=== PATIENT | female | born 1995 | race Caucasian/White ===

== ENCOUNTER 2016-12-29 10:03 | Inpatient (IN) | payer BC ==
--- NOTE | ~2016-12-29 | CN ---
Consultation Report [facility] [address] [place]. [address] NAME: HILARIA GRAHAM : [birth year] STATUS : ADM IN [facility]#: [id number] AGE: 21 ADM/REG DATE : 12/29/16 MR#: [id number] REPORT SERV DATE: 12/29/16 DICTATED BY: MAURICE MELARA DATE: 12/29/16 REPORT STATUS : Draft TRANSCRIBED BY: MODKatie DATE: 12/29/16 INFECTIOUS DISEASE CONSULT DATE OF CONSULTATION: REASON FOR CONSULT: Right ankle infection. HISTORY OF PRESENT ILLNESS: A 21 years old white lady with no significant past medical history, who suffered a right fibula fracture and the right medial malleolus tendon rupture, and had surgical repair in September. She had an ORIF laterally and this tendon suture medially. She states that she had stitches for a while, but when the stitches were removed, the wound did not coapt and did not heal. They tried local treatments with Iodosorb and then later, in the last few weeks, she received two rounds of Keflex. She has had some yellowish drainage and some bloody drainage from the upper portion of the incision, but no fever or chills. No shortness of breath. No nausea, no diarrhea, no urinary symptoms. She was also found to have a right leg DVT, so she is on anticoagulation with Eliquis. Finally, she was admitted for deeper debridement of this incision. PAST MEDICAL HISTORY: As I mentioned above, plus she has an unknown dermatologic condition that affected her arms, but she has no open wounds. FAMILY HISTORY: Mother had DVT. ALLERGIES: SULFA CAUSED A REACTION AT A YOUNG AGE. SOCIAL HISTORY: She is . She states she is not at risk of being . There is no need to do a test. She does not smoke. 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 MEDICATIONS ON ADMISSION: Only the Eliquis. PHYSICAL EXAMINATION: GENERAL: She is alert, awake, not in distress. HEENT: No oral erythema. LUNGS: Clear to auscultation. HEART: Regular rhythm. ABDOMEN: Obese, soft. EXTREMITIES: Left foot without lesions. Right ankle with good range of motion. Lateral ankle has a fairly long incision going up along the lateral malleolus. It is covered with Iodosorb. The upper portion has some dehiscence. There may be of purulent material there, but I could not see how deep did it go. There is no surrounding cellulitis. No significant edema. Skin over the arms has some reddish patches, which apparently is chronic. LAB WORK: Reviewed. There is no leukocytosis and no renal insufficiency. There is mild Consultation Report [address] [place]. [address] NAME: HILARIA GRAHAM : [birth year] STATUS : ADM IN [facility]#: [id number] AGE: 21 ADM/REG DATE : 12/29/16 MR#: [id number] REPORT SERV DATE: 12/29/16 DICTATED BY: MAURICE MELARA DATE: 12/29/16 REPORT STATUS : Draft TRANSCRIBED BY: JOSIE DATE: 12/29/16 elevation of the inflammatory parameters. ASSESSMENT AND PLAN: 1. Right lateral ankle incision dehiscence post ORIF right ankle fracture in September. She received Keflex until last night. She is going to the operating room. Please send operative cultures. We will start antibiotics postop with vancomycin. We will see what the surgical findings are, whether this is a deep process involving the bone or the hardware. 2. Recent right leg deep vein thrombosis, on anticoagulation. Agree with holding antibiotics preop. I discussed with the patient and she had the opportunity to ask questions. BRAN/JOSIE Maurice Melara M.D. / [id number] CC: David Dawkins MD
--- NOTE | ~2016-12-29 | OP ---
Record Of Operation [facility] [address] [place]. [address] NAME: DAXA LUDWIG : [birth year] STATUS : ADM IN PAT#: [id number] AGE: 21 ADM/REG DATE : 12/29/16 MR#: [id number] REPORT SERV DATE: 12/30/16 DICTATED BY: MONE SÁNCHEZ DATE: 12/30/16 REPORT STATUS : Draft TRANSCRIBED BY: MODL DATE: 12/30/16 DATE OF PROCEDURE: 12/29/2016 PREOPERATIVE DIAGNOSES: 1. Right bimalleolar equivalent ankle fracture. 2. Right wound dehiscence. POSTOPERATIVE DIAGNOSES: 1. Right bimalleolar equivalent ankle fracture. 2. Right wound dehiscence. PROCEDURES: 1. Irrigation and debridement down to including bone, right ankle. 2. Deep hardware removal, right ankle. ANESTHESIA: General. COMPLICATIONS: None. INDICATION FOR OPERATION: Daxa Ludwig is a pleasant 21-year-old female who underwent ORIF of her right ankle on 10/16/2016. During the postoperative period, she developed drainage from her lateral wound. This failed nonoperative treatment. This risks and benefits of surgical intervention were discussed at length with the patient, all of her questions were answered, and she wished to proceed. DESCRIPTION OF PROCEDURE: Daxa was brought back to operating room, where general anesthesia was initiated. Right lower extremity was prepped and draped in the usual sterile fashion, leg was elevated, and a well-padded tourniquet was inflated. Initially, we inspected this ulcerative area. Over the lateral incision, she had an approximately 5 cm x 5 mm linear area along the lateral incision that did not heal. There was some purulent drainage. This was thoroughly inspected. Although the deep fascia appeared to be reasonably intact, there was some concern that this potentially tracked down to the hardware. There was no visible hardware present in the wound. It was with the use of a sharp hemostat that made us concerned that there was communication. For this reason, we opened the previously made surgical incision. We used a "no-touch" technique throughout the case. We opened the lateral wound. Copious irrigation and debridement was performed, both prior to complete opening of the incision as well as throughout this case. Once opened, we had direct visualization of her prior hardware. X-rays were examined and the ankle was felt to be healed enough to justify hardware removal. For this reason, we proceeded with deep hardware removal. We removed all metallic hardware including the lag screw in the lateral plate. Hardware was removed without difficulty. Next, we performed a thorough irrigation and debridement down to including the bone. There were no lytic lesions in the bone or evidence of gross bone involvement from an infection standpoint, but our goal was to remove any microscopic traces of bacteria. We used a curette to thoroughly debride the lateral skin and subcutaneous tissue. Once we felt that all necrotic and devitalized tissue had been removed, the wound was closed in a single layer with interrupted 2-0 nylon suture. Prior to Record Of Operation [facility] [id number] [place]. [address] NAME: DAXA LUDWIG : [birth year] STATUS : ADM IN [facility]#: [id number] AGE: 21 ADM/REG DATE : 12/29/16 MR#: [id number] REPORT SERV DATE: 12/30/16 DICTATED BY: MONE SÁNCHEZ DATE: 12/30/16 REPORT STATUS : Draft TRANSCRIBED BY: JOSIE DATE: 12/30/16 wound closure, the tourniquet was deflated and localized vessels were cauterized as indicated. Bulky sterile dressings were applied. Deep intraoperative cultures were sent. The patient tolerated the procedure without difficulty. She awoke in the operating room and was transferred to the recovery room in satisfactory condition. JOANNE/JOSIE Mone Sánchez MD / [id number] CC: MD Foster Wilkerson M.D.
--- NOTE | ~2016-12-29 | DS ---
Discharge Summary [facility] [address] [facility] [place]. [address] NAME: HILARIA GRAHAM : [birth year] STATUS : DIS IN PAT#: [id number] AGE: 21 ADM/REG DATE : 12/29/16 MR#: [id number] REPORT SERV DATE: 01/16/17 DICTATED BY: MONE DAWKINS DATE: 01/15/17 REPORT STATUS : Draft TRANSCRIBED BY: MODL DATE: 01/15/17 ADMISSION DATE: 12/29/2016 DISCHARGE DATE: 01/01/2017 DISCHARGE DIAGNOSIS: Right wound dehiscence. HOSPITAL COURSE: The patient is a pleasant female who underwent ORIF of the right ankle on 10/16/2016. During the postoperative period, she developed drainage and dehiscence of the lateral aspect of the distal fibula. This failed nonsurgical treatment. Risks and benefits of surgical intervention were discussed at length with the patient and she wished to proceed with surgical intervention. Surgical intervention occurred on 12/29/2016, the day of the admission. Deep cultures were taken. Deep hardware removal was performed as well. Throughout the hospital course, the patient was able to be weightbearing as tolerated in her walking boot. Dressing changes were performed daily, which showed a well-approximated incision without residual wound drainage. Infectious Disease consultation was obtained. Cultures were closely monitored. The patient was discharged home on January 01, 2017, with plan for postoperative antibiotics per the Infectious Disease doctors. She was asked to follow up with me in my office once for followup. We discussed appropriate pain management. All of her questions and her family's questions were answered to their satisfaction. JOANNE/JOSIE Mone Dawkins MD / [id number] CC: MD Foster Wilkerson M.D.
[2016-12-29 12:37] LABS: BASOPHILS 0.1 %; BASOPHILS ABSOLUTE 0.01 10/3/uL (0.0-0.16); EOSINOPHILS 0.4 %; EOSINOPHILS ABSOLUTE 0.03 10/3/uL (0.0-0.53); HEMATOCRIT 37.6 % (36.0-48.0); HEMOGLOBIN 12.6 g/dL (12.0-16.0); IMMATURE GRANULOCYTES 0.1 %; IMMATURE GRANULOCYTES ABSOLUTE 0.01 10/3/uL (0.0-0.11); LYMPHOCYTES 19.1 %; MANUAL DIFF NO %; MEAN CORPUS HGB CONC 33.5 g/dL (32.0-36.0); MEAN CORPUSCULAR HEMOGLOB 28.6 pg (26.0-34.0); MEAN CORPUSCULAR VOLUME 85.5 fL (80-100); MEAN PLATELET VOLUME 10.2 fL (9.2-13.0); MONOCYTES ABSOLUTE 0.42 10/3/uL (0.21-1.20); NEUTROPHILS 75.3 %; NEUTROPHILS ABSOLUTE 6.32 10/3/uL (2.02-8.40); PLATELET COUNT 315 10/3/uL (150-400); RBC DISTRIBUTION WIDTH 13.1 % (12.0-16.0); WHITE BLOOD CELLS 8.4 10/3/uL (4.5-10.5)
[2016-12-29 12:55] LABS: ALBUMIN 3.9 G/DL (3.5-5.0); ALKALINE PHOSPHATASE 113 U/L (45-117); BUN (BLOOD UREA NITROGEN) 8 MG/DL (6-23); CALCIUM, SERUM 8.9 MG/DL (8.5-10.4); CHLORIDE, SERUM 106 MMOL/L (96-112); CO2 (CARBON DIOXIDE) 24 MMOL/L (24-34); CREATININE 0.61 MG/DL (0.55-1.02); GFR AFRICAN AMERICAN 148 ML/MIN (>=60); GFR NON AFRICAN AMERICAN 128 ML/MIN (>=60); GLOBULIN 4.1 G/DL (2.5-4.1); GLUCOSE, SERUM 93 MG/DL (60-99); SGOT(AST) 30 U/L (5-40); SGPT(ALT) 45 U/L (5-65); SODIUM, SERUM 140 MMOL/L (135-148); TOTAL BILIRUBIN 0.6 MG/DL (0-1.2)
[2016-12-29 12:57] LABS: C-REACTIVE PROTEIN 10.2 MG/L (<8.0)
[2016-12-29 13:34] LABS: SED RATE 28 MM/HR (0-20)
[2016-12-29 13:41] LABS: PARTIAL THROMBO TIME 29.3 SEC (22.5-37.2); PROTIME (NOT ORD) 13.5 SEC (12.0-14.5)
[2016-12-30 12:43] LABS: BASOPHILS 0.1 %; BASOPHILS ABSOLUTE 0.01 10/3/uL (0.0-0.16); EOSINOPHILS 0.2 %; EOSINOPHILS ABSOLUTE 0.02 10/3/uL (0.0-0.53); HEMATOCRIT 34.5 % (36.0-48.0); HEMOGLOBIN 11.3 g/dL (12.0-16.0); IMMATURE GRANULOCYTES 0.2 %; IMMATURE GRANULOCYTES ABSOLUTE 0.02 10/3/uL (0.0-0.11); LYMPHOCYTES 25.7 %; LYMPHOCYTES ABSOLUTE 2.26 10/3/uL (0.67-4.30); MEAN CORPUS HGB CONC 32.8 g/dL (32.0-36.0); MEAN CORPUSCULAR HEMOGLOB 28.5 pg (26.0-34.0); MEAN CORPUSCULAR VOLUME 87.1 fL (80-100); MEAN PLATELET VOLUME 10.2 fL (9.2-13.0); MONOCYTES ABSOLUTE 0.62 10/3/uL (0.21-1.20); NEUTROPHILS 66.8 %; NEUTROPHILS ABSOLUTE 5.88 10/3/uL (2.02-8.40); PLATELET COUNT 310 10/3/uL (150-400); RED CELL COUNT 3.96 10/6/uL (4.0-5.6); WHITE BLOOD CELLS 8.8 10/3/uL (4.5-10.5)
[2016-12-30 12:46] LABS: MANUAL DIFF NO %
[2016-12-30 13:01] LABS: BUN (BLOOD UREA NITROGEN) 7 MG/DL (6-23); CALCIUM, SERUM 8.2 MG/DL (8.5-10.4); CHLORIDE, SERUM 105 MMOL/L (96-112); CO2 (CARBON DIOXIDE) 26 MMOL/L (24-34); CREATININE 0.72 MG/DL (0.55-1.02); GFR AFRICAN AMERICAN 137 ML/MIN (>=60); GFR NON AFRICAN AMERICAN 118 ML/MIN (>=60); POTASSIUM, SERUM 3.9 MMOL/L (3.5-5.3); SODIUM, SERUM 141 MMOL/L (135-148)
[2016-12-30 13:02] LABS: GLUCOSE, SERUM 126 MG/DL (60-99)
[2016-12-31 06:07] LABS: BASOPHILS 0.2 %; BASOPHILS ABSOLUTE 0.01 10/3/uL (0.0-0.16); EOSINOPHILS 0.6 %; EOSINOPHILS ABSOLUTE 0.04 10/3/uL (0.0-0.53); HEMATOCRIT 33.1 % (36.0-48.0); HEMOGLOBIN 10.7 g/dL (12.0-16.0); LYMPHOCYTES 43.9 %; LYMPHOCYTES ABSOLUTE 2.75 10/3/uL (0.67-4.30); MEAN CORPUS HGB CONC 32.3 g/dL (32.0-36.0); MEAN CORPUSCULAR HEMOGLOB 28.5 pg (26.0-34.0); NEUTROPHILS 47.3 %; NEUTROPHILS ABSOLUTE 2.97 10/3/uL (2.02-8.40); PLATELET COUNT 260 10/3/uL (150-400); RBC DISTRIBUTION WIDTH 13.3 % (12.0-16.0); RED CELL COUNT 3.76 10/6/uL (4.0-5.6); WHITE BLOOD CELLS 6.3 10/3/uL (4.5-10.5)
[2016-12-31 06:19] LABS: CALCIUM, SERUM 7.9 MG/DL (8.5-10.4); CHLORIDE, SERUM 109 MMOL/L (96-112); CO2 (CARBON DIOXIDE) 27 MMOL/L (24-34); CREATININE 0.74 MG/DL (0.55-1.02); GFR AFRICAN AMERICAN 132 ML/MIN (>=60); GFR NON AFRICAN AMERICAN 114 ML/MIN (>=60); GLUCOSE, SERUM 116 MG/DL (60-99); POTASSIUM, SERUM 4.1 MMOL/L (3.5-5.3); SODIUM, SERUM 143 MMOL/L (135-148)
[2016-12-31 06:20] LABS: MANUAL DIFF NO %
[2016-12-31 06:21] LABS: BUN (BLOOD UREA NITROGEN) 13 MG/DL (6-23)
[2017-01-01] MEDS ORDERED: ELIQUIS 5 MG TAB5 MG PO (13:38)
[2017-01-01] MEDS ORDERED: NORCO1 TAB PO (13:38)
[2017-01-01] MEDS ORDERED: CEFADROXIL1 GM PO (13:39)
== END 2017-01-01 14:59 | disposition home or self-care (01) | DRG 908 ==
LOC: CDU2 10:03 → 3SO 18:09
PROVIDERS: Internal Medicine Infectious Disease; Nurse Practitioner; Orthopaedic Surgery Foot and Ankle Surgery
PROC: 0QBG0ZZ Excision of Right Tibia, Open Approach (ICD-10-PCS; 2016-12-29)
PROC: 0SPF04Z Removal of Internal Fixation Device from Right Ankle Joint, Open Approach (ICD-10-PCS; 2016-12-29)
PROC: 0QBJ0ZZ Excision of Right Fibula, Open Approach (ICD-10-PCS; principal; 2016-12-29 19:00)
DX: T81.31XA Disruption of external operation (surgical) wound, not elsewhere classified, initial encounter (principal); I82.4Z1 Acute embolism and thrombosis of unspecified deep veins of right distal lower extremity; Z86.718 Personal history of other venous thrombosis and embolism; Z79.01 Long term (current) use of anticoagulants; E66.01 Morbid (severe) obesity due to excess calories; Z68.36 Body mass index [BMI] 36.0-36.9, adult
CPT/HCPCS: 80048; 80053; 84703; 85025; 85610; 85652; 85730; 86140; 87070; 87075; 87205; 88300; A9270-GY; J2020; J2175; J2250; J2270; J2405; J3010; J3370